=== PATIENT | male | born 2000 | race African-American/Black ===

== ENCOUNTER 2023-11-20 06:18 | Emergency (ER) | payer OTHER ==
[2023-11-20] MEDS ORDERED: Acetaminophen 500 MG TAB ONE (07:19)
== END 2023-11-20 09:28 | disposition home or self-care (01) ==
LOC: EEVIPCON 06:18 → NAV ERS 06:18
DX: S02.2XXA Fracture of nasal bones, initial encounter for closed fracture (principal); S00.83XA Contusion of other part of head, initial encounter; W18.30XA Fall on same level, unspecified, initial encounter
CPT/HCPCS: 70450; 70486

== ENCOUNTER 2024-04-18 15:25 | Emergency (ER) | payer OTHER ==
[2024-04-18] MEDS ORDERED: Acetaminophen 500 MG TAB ONE (15:51)
== END 2024-04-18 19:26 ==
LOC: NAV ERS 15:25
DX: S01.412A Laceration without foreign body of left cheek and temporomandibular area, initial encounter (principal); J45.909 Unspecified asthma, uncomplicated; Z79.899 Other long term (current) drug therapy; Y04.0XXA Assault by unarmed brawl or fight, initial encounter; Y92.149 Unspecified place in prison as the place of occurrence of the external cause
CPT/HCPCS: 12011; 70486

== ENCOUNTER 2024-08-11 04:57 | Emergency (ER) | payer OTHER | END 2024-08-11 06:50 | LOC: NAV ERS 04:57 | DX: S00.93XA Contusion of unspecified part of head, initial encounter (principal); F07.81 Postconcussional syndrome; W01.10XA Fall on same level from slipping, tripping and stumbling with subsequent striking against unspecified object, initial encounter; Y92.149 Unspecified place in prison as the place of occurrence of the external cause | CPT/HCPCS: 70450 ==